=== PATIENT | male | born 1950 | race Caucasian/White ===

== ENCOUNTER 2017-10-17 08:33 | Day surgery (SDC) | payer OTHER ==
[~2017-10-17] VITALS: Ht 172.7 cm; Wt 79.0 kg
[~2017-10-17 08:33] MED LIST: ATOR20 PO; Aspir 8181 MG; CLOP75 PO; Ferrousul325 MG; Flomax0.4 MG PO; GABA300; HYDACE10B PO; METO50; Nitrostat0.4 MG; Percocet 5-3251 EACH PO; ZYRTEC10 M1
== END 2017-10-17 11:15 | disposition home or self-care (01) ==
LOC: ORSCSDS 08:33
PROVIDERS: Internal Medicine Gastroenterology
PROC: 0DJD8ZZ Inspection of Lower Intestinal Tract, Via Natural or Artificial Opening Endoscopic (ICD-10-PCS; principal; 2017-10-17 10:00)
DX: D64.9 Anemia, unspecified (principal); K64.4 Residual hemorrhoidal skin tags; K57.30 Diverticulosis of large intestine without perforation or abscess without bleeding; K64.8 Other hemorrhoids; E78.5 Hyperlipidemia, unspecified; R73.03 Prediabetes; K62.5 Hemorrhage of anus and rectum; I25.10 Atherosclerotic heart disease of native coronary artery without angina pectoris; Z87.891 Personal history of nicotine dependence; Z79.82 Long term (current) use of aspirin; Z79.899 Other long term (current) drug therapy
CPT/HCPCS: J2405; J7120